=== PATIENT | male | born 1950 | race Caucasian/White ===

== ENCOUNTER 2017-06-13 15:47 | Emergency (ER) | payer OTHER ==
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
== END 2017-06-13 15:55 | disposition left against medical advice (07) ==
LOC: NED 15:47
DX: Z04.1 Encounter for examination and observation following transport accident (principal); V89.2XXA Person injured in unspecified motor-vehicle accident, traffic, initial encounter
CPT/HCPCS: 99281